=== PATIENT | female | born 2000 | race Caucasian/White ===

== ENCOUNTER 2021-01-03 07:22 | Emergency (ER) | payer OTHER, SELFPAY ==
[2021-01-03 07:31] VITALS: BP 117/74; PULSE 117; RESP 15; TEMP 36.9; O2SAT 96; BMI 25.7
--- NOTE | 2021-01-03 08:00 | ED.URI ---
HPI - URI/Sore Throat General Chief Complaint: Upper Respiratory Symptoms Stated Complaint: SORE THROAT FOR A WEEK Time Seen by Provider: 01/03/21 07:59 Source: patient Mode of arrival: Ambulatory Limitations: no limitations History of Present Illness HPI Narrative: This is a 20-year-old female who has had a sore throat for the past week. Patient states it feels swollen on both sides. She has had a change in her voice. She has not had fevers. She has really had any nasal congestion. She has had difficulty swallowing secondary to pain. Patient denies any pain in her ears. Patient has been able to swat although her own secretions. Patient has not had any cough cold or congestive type symptoms. She has not any chest pain or shortness of breath. No nausea or vomiting. No fevers that she is aware of. Patient has not had any diarrhea constipation or other GI or urinary symptoms. Patient has not noted any rash. She is otherwise healthy female with no major medical issues. Related Data Previous Rx's Medication Instructions Recorded amoxicillin 500 mg tablet 500 mg PO TID #30 tab 01/03/21 Allergies Allergy/AdvReac Type Severity Reaction Status Date / Time No Known Drug Allergies Allergy Verified 01/03/21 08:34 Review of Systems Review of Systems ROS Unobtainable: All systems reviewed & are unremarkable except as noted in HPI and below Patient History Social History Smoking Status: Never smoker Smoking Status: Never smoker alcohol intake frequency: 0-2 drinks per day Substance Use Type: does not use Exam Narrative Exam Narrative: GEN: well nourished, well appearing female, alert and oriented x 3, patient appears to be in mild distress. Patient resting comfortably seated backwards. HEENT: Atraumatic, pupils are equal round reactive to light, extraocular movements are intact, nares are clear, TMs are clear with no fluid, there is no conjunctival pallor. Throat has bilateral tonsillar swelling with exudate, 3+ tonsils, no uvular deviation, no stridor, patient is swallowing secretions without issues. Patient is slightly hoarse. HEART: Regular rate and rhythm without murmur, clicks, rubs. No carotid bruits, pulses are equal in upper and lower extremities LUNGS:Lungs clear to auscultation, no wheezes, rales, crackles, chest moves symmetrically ABD:bowel sounds normal, soft, non-tender, no guarding, rebound, rigidity, no masses noted, no hepatosplenomegaly MSCL: Normal gait NEURO:CN 2-12 intact, sensation normal Initial Vital Signs Initial Vital Signs: Vital Signs Temperature 98.4 F 01/03/21 07:31 Pulse Rate 117 H 01/03/21 07:31 Respiratory Rate 15 01/03/21 07:31 Blood Pressure 117/74 01/03/21 07:31 Pulse Oximetry 96 01/03/21 07:31 Course Orders Ordered: Discontinued Medications Dexamethasone (Dexamethasone 10 Mg/Ml Vial) 10 mg PO NOW ONE Stop: 01/03/21 08:13 Last Admin: 01/03/21 08:21 Dose: 10 mg Documented by: KEYLA Vital Signs Vital signs: Vital Signs - 8 hr 01/03/21 07:31 Temperature 98.4 F Pulse Rate 117 H Respiratory Rate 15 Blood Pressure 117/74 Pulse Oximetry 96 MDM - URI/Sore Throat Lab Data Labs: Point of Care Testing Rapid Strep A Negative [facility] Narrative Medical decision making narrative: This is a 20-year-old female with some symptoms and exam findings consistent with strep pharyngitis. Patient point of care strep is negative but throat culture was sent. She is given dose of oral dexamethasone and started on amoxicillin secondary to being 3/4 Cent[facility] criteria. Discharge Plan Departure Patient Disposition: Home Clinical Impression: Pharyngitis Instructions: DI for Pharyngitis/Tonsillopharyngitis -- Adult Activity Restrictions/Additional Instructions: Follow-up in the next 48-72 hours if you are not having any improvement. Your given a dose of dexamethasone here which can help with swelling and discomfort. You can take ibuprofen up to 800 mg every 8 hours as needed. Make sure you are drinking plenty of fluids. Gargling with warm salt water can sometimes be helpful. Take antibiotics until completely gone. I would recommend starting these this morning. Prescription sent to [facility] in [place]. Please return for fevers greater 100.4 F, rapidly worsening symptoms, muffled voice, swelling on a single side, inability to swell your saliva or own secretions, persistent vomiting, lightheadedness or passing out or other new or concerning symptoms. Prescriptions: New amoxicillin 500 mg tablet 500 mg PO TID Qty: 30 RF: 0
[2021-01-03] MEDS: DEXAMETHASONE 10 MG/ML VIAL PO (08:21)
[2021-01-03 08:46] VITALS: BP 116/78; PULSE 106
== END 2021-01-03 08:51 | disposition home or self-care (01) ==
PROVIDERS: Emergency Provider Emergency Medicine
DX: J02.9 Acute pharyngitis, unspecified (principal)
CPT/HCPCS: 87070; 87077; 87880; 99283; J1100